=== PATIENT | male | born 1935 | race Caucasian/White ===

== ENCOUNTER 2017-02-19 13:16 | Day surgery (SDC) | payer MEDICARE, BC ==
[2017-02-19] MEDS ORDERED: TRIAMCINOLONE ACETONIDE 40 MG/ML SUS ONE (14:17)
[2017-02-19] MEDS ORDERED: BUPIVACAINE HCL 0.25% MPF 10 ML SOL INFIL ONE (14:17)
[2017-02-19 14:55] VITALS: RESP 20; TEMP 97.9
[2017-02-19 15:04] VITALS: BP 209/84; PULSE 70; O2SAT 98
== END 2017-02-19 15:15 | disposition home or self-care (01) | DRG 552 ==
LOC: SURG 13:16
PROVIDERS: ATTEND Nurse Anesthetist, Certified Registered
DX: M48.062 Spinal stenosis, lumbar region with neurogenic claudication (principal); M53.86 Other specified dorsopathies, lumbar region
CPT/HCPCS: J3300

== ENCOUNTER 2017-03-02 14:40 | Inpatient (IN) | payer MEDICARE, BC ==
[2017-03-02] MEDS ORDERED: LABETALOL HYDROCHLORIDE 5 MG/ML SOL IV ONE ×2 (14:48→14:57)
[2017-03-02] MEDS: SODIUM CHLORIDE 0.9% FLUSH 10 ML SOL IV PRN ×2 (15:04→17:26)
[2017-03-02 15:08] LABS: BASOPHILS % (AUTO) 0 % (0-3); EOSINOPHILS % (AUTO) 0 % (0-9); HEMATOCRIT 44 % (39-53); MEAN CORPUSCULAR HGB CONC 34.1 gm/dl (32.0-36.0); MEAN CORPUSCULAR VOLUME 96 fL (80-100); MONOCYTES % (AUTO) 9.4 % (0-12); NEUTROPHILS % (AUTO) 77.9 % (37-80)
[2017-03-02 15:23] LABS: ALBUMIN 3.6 gm/dl (3.4-5.0); ALT 42 IU/L (14-63); CALCIUM 8.9 mg/dl (8.5-10.1); GLOM FILT RATE 57 mL/min (>60); POTASSIUM 4.1 mMol/L (3.5-5.1); SODIUM 138 mMol/L (136-145)
[2017-03-02 15:32] LABS: APPEARANCE,URINE Clear; BILIRUBIN,URINE NEGATIVE (NEGATIVE); COLOR,URINE Yellow; GLUCOSE, URINE (UA) NEGATIVE (NEGATIVE); KETONES,URINE NEGATIVE (NEGATIVE); LEUKOCYTE ESTERASE ,URINE NEGATIVE (NEGATIVE); NITRATE,URINE NEGATIVE (NEGATIVE); OCCULT BLOOD,URINE NEGATIVE (NEG-TRACE)
[2017-03-02] MEDS ORDERED: ACETAMINOPHEN 325 MG PO ONE (15:39)
[2017-03-02] MEDS ORDERED: ACETAMINOPHEN 325 MG ONE (15:40)
[2017-03-02] MEDS ORDERED: NITROGLYCERIN 0.4 MG TAB SL PRN (16:30)
[2017-03-02] MEDS ORDERED: ACETAMINOPHEN 325 MG PO PRN (16:30)
[2017-03-02] MEDS: SODIUM CHLORIDE 0.9% 1000ML 1,000 ML IV SCH (17:26)
[2017-03-02] MEDS: ENOXAPARIN 40 MG SOL SC SCH (17:51)
[2017-03-02] MEDS ORDERED: ASCORBIC ACID/COPPER/LUTEIN/ 1 CAP SGL PO SCH (18:00)
[2017-03-02] MEDS: ASPIRIN EC 81 MG PO SCH (20:50)
[2017-03-02] MEDS: DONEPEZIL 5 MG 5 MG TAB PO SCH (20:50)
[2017-03-02] MEDS: TAMSULOSIN HYDROCHLORIDE 0.4 MG CAP PO SCH (20:50)
[2017-03-02] MEDS: MEMANTINE HYDROCHLORIDE 10 MG TAB PO SCH (20:51)
[2017-03-03] MEDS: SODIUM CHLORIDE 0.9% 1000ML 1,000 ML IV SCH (03:26)
[2017-03-03] MEDS: LEVOTHYROXINE SODIUM 50 MCG TAB PO SCH (06:33)
[2017-03-03] MEDS: PANTOPRAZOLE SODIUM 40 MG ECT PO SCH (06:33)
[2017-03-03 07:11] LABS: BASOPHILS % (AUTO) 1 % (0-3); EOSINOPHILS % (AUTO) 1 % (0-9); HEMATOCRIT 40 % (39-53); MEAN CORPUSCULAR HGB CONC 35.2 gm/dl (32.0-36.0); MEAN CORPUSCULAR VOLUME 95 fL (80-100); MONOCYTES % (AUTO) 11.5 % (0-12); NEUTROPHILS % (AUTO) 73.5 % (37-80)
[2017-03-03 07:29] LABS: CALCIUM 8.5 mg/dl (8.5-10.1); LDL CHOLESTEROL,CALCULATED 78.4 mg/dl (50-130); POTASSIUM 4.2 mMol/L (3.5-5.1); THYROID STIMULATING HORMONE 2.087 uIU/ml (0.358-3.740)
[2017-03-03] MEDS: MEMANTINE HYDROCHLORIDE 10 MG TAB PO SCH ×2 (08:53→20:51)
[2017-03-03] MEDS: ENOXAPARIN 40 MG SOL SC SCH (08:57)
[2017-03-03] MEDS: AMIODARONE 200 MG TAB PO SCH (08:58)
[2017-03-03] MEDS: HYDROCHLOROTHIAZIDE 25 MG TAB PO SCH (09:03)
[2017-03-03] MEDS ORDERED: CLOPIDOGREL 75 MG TAB ONE (15:37)
[2017-03-03] MEDS: CLOPIDOGREL 75 MG TAB PO SCH (15:39)
[2017-03-03] MEDS: LABETALOL HYDROCHLORIDE 5 MG/ML SOL IV PRN (15:41)
[2017-03-03] MEDS: SODIUM CHLORIDE 0.9% FLUSH 10 ML SOL IV PRN (15:43)
[2017-03-03] MEDS: TAMSULOSIN HYDROCHLORIDE 0.4 MG CAP PO SCH (20:51)
[2017-03-03] MEDS: ASPIRIN EC 81 MG PO SCH (20:51)
[2017-03-03] MEDS: DONEPEZIL 5 MG 5 MG TAB PO SCH (20:51)
[2017-03-04] MEDS: ROSUVASTATIN CALCIUM 10 MG TAB PO SCH ×2 (00:39→21:41)
[2017-03-04] MEDS: PANTOPRAZOLE SODIUM 40 MG ECT PO SCH (07:06)
[2017-03-04] MEDS: LEVOTHYROXINE SODIUM 50 MCG TAB PO SCH (07:06)
[2017-03-04] MEDS: AMIODARONE 200 MG TAB PO SCH (08:55)
[2017-03-04] MEDS: MEMANTINE HYDROCHLORIDE 10 MG TAB PO SCH ×2 (08:56→21:41)
[2017-03-04] MEDS: HYDROCHLOROTHIAZIDE 25 MG TAB PO SCH ×2 (08:56→14:53)
[2017-03-04] MEDS: ENOXAPARIN 40 MG SOL SC SCH (08:59)
[2017-03-04] MEDS: CLOPIDOGREL 75 MG TAB PO SCH (08:59)
[2017-03-04] MEDS ORDERED: CLOPIDOGREL 75 MG TAB PO SCH (15:30)
[2017-03-04] MEDS: DONEPEZIL 5 MG 5 MG TAB PO SCH (21:40)
[2017-03-04] MEDS: TAMSULOSIN HYDROCHLORIDE 0.4 MG CAP PO SCH (21:40)
[2017-03-04] MEDS: ASPIRIN EC 81 MG PO SCH (21:40)
[2017-03-05] MEDS: LABETALOL HYDROCHLORIDE 5 MG/ML SOL IV PRN (01:03)
[2017-03-05] MEDS: PANTOPRAZOLE SODIUM 40 MG ECT PO SCH (06:30)
[2017-03-05] MEDS: LEVOTHYROXINE SODIUM 50 MCG TAB PO SCH (06:30)
[2017-03-05 07:27] LABS: CALCIUM 9.1 mg/dl (8.5-10.1)
[2017-03-05 07:29] LABS: BASOPHILS % (AUTO) 0 % (0-3); EOSINOPHILS % (AUTO) 1 % (0-9); HEMATOCRIT 42 % (39-53); MEAN CORPUSCULAR HGB CONC 34.6 gm/dl (32.0-36.0); MEAN CORPUSCULAR VOLUME 95 fL (80-100); MONOCYTES % (AUTO) 11.1 % (0-12)
[2017-03-05 07:46] VITALS: BP 143/70; PULSE 53; RESP 20; TEMP 97.3; O2SAT 96
[2017-03-05] MEDS: MEMANTINE HYDROCHLORIDE 10 MG TAB PO SCH (08:41)
[2017-03-05] MEDS: AMIODARONE 200 MG TAB PO SCH (08:42)
[2017-03-05] MEDS: HYDROCHLOROTHIAZIDE 25 MG TAB PO SCH (08:45)
[2017-03-05] MEDS: CLOPIDOGREL 75 MG TAB PO SCH (08:45)
[2017-03-05] MEDS: ENOXAPARIN 40 MG SOL SC SCH (08:46)
[2017-03-05] MEDS ORDERED: LABETALOL HYDROCHLORIDE 100 MG TAB PO SCH (09:00)
[2017-03-05] MEDS ORDERED: PATIENT EDUCATION 1 MISC PRN (10:42)
[2017-03-05] MEDS ORDERED: PNEUMOC 13-VAL CONJ-DIP CRM/PF 0.5 ML SYRINGE IM ONE (11:58)
== END 2017-03-05 15:55 | DRG 66 ==
LOC: ED 14:40 → ACUTE CARE 16:19 → UNDOADMIN 16:19 → ACUTE CARE 16:30
PROVIDERS: ADMIT Emergency Medicine; ATTEND Emergency Medicine
PROC: F01ZCZZ Transfer Assessment (ICD-10-PCS; principal; 2017-03-03)
PROC: F01L5ZZ Range of Motion and Joint Integrity Assessment of Musculoskeletal System - Lower Back / Lower Extremity (ICD-10-PCS; 2017-03-03)
PROC: F01L0ZZ Muscle Performance Assessment of Musculoskeletal System - Lower Back / Lower Extremity (ICD-10-PCS; 2017-03-03)
PROC: F02Z1ZZ Dressing Assessment (ICD-10-PCS; 2017-03-03)
PROC: F02Z0ZZ Bathing/Showering Assessment (ICD-10-PCS; 2017-03-03)
PROC: F02Z3ZZ Grooming/Personal Hygiene Assessment (ICD-10-PCS; 2017-03-03)
DX: I63.9 Cerebral infarction, unspecified (principal); I66.02 Occlusion and stenosis of left middle cerebral artery; R47.01 Aphasia; R29.702 NIHSS score 2; M54.5 Low back pain; W19.XXXA Unspecified fall, initial encounter; I10 Essential (primary) hypertension; M40.209 Unspecified kyphosis, site unspecified
CPT/HCPCS: 36415; 70450; 70544; 70551; 71010; 80048; 80053; 80061; 81001; 82962; 84443; 84484; 85025; 90670; 93005; 93012; 93306; 94762; 96374; 99221; 99285; J1650; G0008

== ENCOUNTER 2017-12-13 09:40 | Emergency (ER) | payer MEDICARE, BC ==
[2017-12-13 10:07] LABS: BASOPHILS % (AUTO) 1 % (0-3); EOSINOPHILS % (AUTO) 2 % (0-9); HEMATOCRIT 40 % (39-53); HEMOGLOBIN 13.5 gm/dl (13.5-17.7); LYMPHOCYTES % (AUTO) 19.6 % (10-50); MEAN CORPUSCULAR HEMOGLOBIN 31.7 pg (27.0-32.0); MEAN CORPUSCULAR HGB CONC 33.9 gm/dl (32.0-36.0); MEAN CORPUSCULAR VOLUME 94 fL (80-100); MONOCYTES % (AUTO) 11.6 % (0-12); NEUTROPHILS % (AUTO) 66.3 % (37-80)
[2017-12-13 10:10] VITALS: TEMP 98
[2017-12-13 10:24] LABS: INR 1.1 (0.86-1.12)
[2017-12-13 10:28] LABS: ALBUMIN 3.5 gm/dl (3.4-5.0); ALKALINE PHOSPHATASE 80 IU/L (46-116); ALT 23 IU/L (14-63); AST 14 IU/L (15-37); BILIRUBIN,TOTAL 0.4 mg/dl (0.2-1.0); BLOOD UREA NITROGEN 21 mg/dl (7-18); CALCIUM 8.8 mg/dl (8.5-10.1); CARBON DIOXIDE 25.8 mEq/L (21-32); CHLORIDE 103 mMol/L (98-107); CREATININE 1.04 mg/dl (0.80-1.30); GLUCOSE 101 mg/dl (74-106); POTASSIUM 4.3 mMol/L (3.5-5.1); SODIUM 136 mMol/L (136-145); TOTAL PROTEIN 6.6 gm/dl (6.4-8.2); TROP I < 0.017 ng/ml (0.000-0.056)
[2017-12-13 11:06] VITALS: BP 132/67; PULSE 52; RESP 23; O2SAT 97
== END 2017-12-13 11:38 | DRG 69 ==
LOC: ED 09:40
DX: G45.9 Transient cerebral ischemic attack, unspecified (principal); J20.9 Acute bronchitis, unspecified
CPT/HCPCS: 36415; 70450; 71045; 80053; 84484; 85025; 85610; 85730; 93005; 99283; 99284

== ENCOUNTER 2017-12-25 13:01 | Emergency (ER) | payer MEDICARE, BC ==
[2017-12-25 13:08] VITALS: RESP 18; TEMP 97.9; O2SAT 98
[2017-12-25 13:38] LABS: BASOPHILS % (AUTO) 1 % (0-3); EOSINOPHILS % (AUTO) 2 % (0-9); HEMATOCRIT 41 % (39-53); HEMOGLOBIN 13.5 gm/dl (13.5-17.7); LYMPHOCYTES % (AUTO) 22.9 % (10-50); MEAN CORPUSCULAR HEMOGLOBIN 31.1 pg (27.0-32.0); MEAN CORPUSCULAR HGB CONC 32.7 gm/dl (32.0-36.0); MEAN CORPUSCULAR VOLUME 95 fL (80-100); MONOCYTES % (AUTO) 11.1 % (0-12); NEUTROPHILS % (AUTO) 63.3 % (37-80)
[2017-12-25 13:48] LABS: ALBUMIN 3.5 gm/dl (3.4-5.0); BILIRUBIN,TOTAL 0.4 mg/dl (0.2-1.0); CALCIUM 8.7 mg/dl (8.5-10.1); CARBON DIOXIDE 26.5 mEq/L (21-32); CREATININE 1.09 mg/dl (0.80-1.30); POTASSIUM 4.5 mMol/L (3.5-5.1); TOTAL PROTEIN 6.7 gm/dl (6.4-8.2)
[2017-12-25 17:26] VITALS: BP 198/79; PULSE 60
== END 2017-12-25 17:08 | DRG 206 ==
LOC: ED 13:01
DX: T17.908A Unspecified foreign body in respiratory tract, part unspecified causing other injury, initial encounter (principal)
CPT/HCPCS: 36415; 70491; 71260; 80053; 85025; 99283; Q9967

== ENCOUNTER 2018-04-05 15:07 | Emergency (ER) | payer MEDICARE, BC ==
[2018-04-05 15:15] VITALS: TEMP 97.6
[2018-04-05] MEDS ORDERED: LIDOCAINE HCL 1% 50 MG/5 ML SOL INFIL ONE (15:47)
[2018-04-05] MEDS ORDERED: LIDOCAINE HCL 1% MPF 30 SOL ONE (16:09)
[2018-04-05] MEDS ORDERED: CEPHALEXIN 250 MG/5 ML BOTTLE PO ONE (16:59)
[2018-04-05 17:56] VITALS: RESP 20
[2018-04-05 17:57] VITALS: BP 190/85; PULSE 60; O2SAT 99
== END 2018-04-05 17:45 | DRG 605 ==
LOC: ED 15:07
DX: S61.215A Laceration without foreign body of left ring finger without damage to nail, initial encounter (principal); S61.217A Laceration without foreign body of left little finger without damage to nail, initial encounter; S63.257A Unspecified dislocation of left little finger, initial encounter
CPT/HCPCS: 12002; 26770; 73130; 99284; A9270-GY; J2001

== ENCOUNTER 2018-04-08 00:06 | Emergency (ER) | payer MEDICARE, BC | END 2018-04-08 01:45 | LOC: ED 00:06 ==

== ENCOUNTER 2018-06-13 10:51 | Inpatient (IN) | payer MEDICARE, BC ==
[2018-06-13] MEDS ORDERED: FUROSEMIDE 20mg SOL IV ONE (11:07)
[2018-06-13] MEDS ORDERED: FUROSEMIDE 20mg SOL ONE (11:14)
[2018-06-13] MEDS: SODIUM CHLORIDE 0.9% FLUSH 10 ML SOL IV PRN ×2 (11:32→23:10)
[2018-06-13 11:56] LABS: BASOPHILS % (AUTO) 0 % (0-3); EOSINOPHILS % (AUTO) 0 % (0-9); HEMATOCRIT 42 % (39-53); HEMOGLOBIN 14.2 gm/dl (13.5-17.7); LYMPHOCYTES % (AUTO) 8.5 % (10-50); MEAN CORPUSCULAR HEMOGLOBIN 31.8 pg (27.0-32.0); MEAN CORPUSCULAR HGB CONC 33.7 gm/dl (32.0-36.0); MEAN CORPUSCULAR VOLUME 94 fL (80-100)
[2018-06-13 12:15] LABS: ALBUMIN 3.7 gm/dl (3.4-5.0); ALKALINE PHOSPHATASE 129 IU/L (46-116); ALT 16 IU/L (14-63); AST 22 IU/L (15-37); BILIRUBIN,TOTAL 0.6 mg/dl (0.2-1.0); BLOOD UREA NITROGEN 19 mg/dl (7-18); CALCIUM 8.7 mg/dl (8.5-10.1); CARBON DIOXIDE 27.2 mEq/L (21-32); CHLORIDE 104 mMol/L (98-107); CREATININE 1.14 mg/dl (0.80-1.30); CRP INFLAMMATORY 0.41 mg/dl (0.00-0.33); GLUCOSE 113 mg/dl (74-106); POTASSIUM 4.8 mMol/L (3.5-5.1); SODIUM 140 mMol/L (136-145); TOTAL PROTEIN 6.9 gm/dl (6.4-8.2); TROP I < 0.017 ng/ml (0.000-0.056)
[2018-06-13] MEDS ORDERED: CEFTRIAXONE 1 GM PDS ONE (12:46)
[2018-06-13] MEDS ORDERED: SODIUM CHLORIDE 0.9% 250 ML 250 ML IV ONE (12:47)
[2018-06-13] MEDS ORDERED: CEFTRIAXONE 1 GM PDS 0.5 GM in SODIUM CHLORIDE 0.9% 50 ML 50 ML IV ONE (12:47)
[2018-06-13] MEDS ORDERED: SODIUM CHLORIDE 0.9% 1000ML 1,000 ML IV ONE (12:51)
[2018-06-13] MEDS ORDERED: AZITHROMYCIN 500 MG PDS IV ONE (13:31)
[2018-06-13] MEDS: AZITHROMYCIN 500 MG PDS IV SCH (13:42)
[2018-06-13] MEDS ORDERED: ALBUTEROL NEB SOL 2.5MG/3ML 1 VIAL SOL NEB PRN (15:39)
[2018-06-14 07:41] LABS: BASOPHILS % (AUTO) 1 % (0-3); EOSINOPHILS % (AUTO) 1 % (0-9); HEMATOCRIT 42 % (39-53); HEMOGLOBIN 13.9 gm/dl (13.5-17.7); LYMPHOCYTES % (AUTO) 19.3 % (10-50); MEAN CORPUSCULAR HEMOGLOBIN 31.6 pg (27.0-32.0); MEAN CORPUSCULAR HGB CONC 33.2 gm/dl (32.0-36.0); MEAN CORPUSCULAR VOLUME 95 fL (80-100); MONOCYTES % (AUTO) 12.6 % (0-12); NEUTROPHILS % (AUTO) 66.3 % (37-80)
[2018-06-14 07:52] LABS: CALCIUM 8.9 mg/dl (8.5-10.1); CARBON DIOXIDE 25.8 mEq/L (21-32); CREATININE 1.18 mg/dl (0.80-1.30); POTASSIUM 4.2 mMol/L (3.5-5.1)
[2018-06-14] MEDS: FUROSEMIDE 20mg SOL IV SCH (09:51)
[2018-06-14] MEDS: SODIUM CHLORIDE 0.9% FLUSH 10 ML SOL IV PRN ×2 (09:51→14:05)
[2018-06-14 10:52] LABS: APPEARANCE,URINE Cloudy; BILIRUBIN,URINE NEGATIVE (NEGATIVE); COLOR,URINE Red; GLUCOSE, URINE (UA) NEGATIVE (NEGATIVE); KETONES,URINE TRACE (NEGATIVE); LEUKOCYTE ESTERASE ,URINE TRACE (NEGATIVE); NITRATE,URINE NEGATIVE (NEGATIVE); PH,URINE 6.5
[2018-06-14 10:59] LABS: OCCULT BLOOD,URINE 3+ (NEG-TRACE); RBC,URINE TNTC (0-3AV/HPF); WBC,URINE UNABLE (0-5AV/HPF)
[2018-06-14 11:00] LABS: BACTERIA UNABLE (< 1+); CRYSTALS UNABLE (0-3 AVE/HPF); EPITHELIAL CELLS UNABLE (SQUAMOUS)
[2018-06-14 11:44] LABS: APPEARANCE,URINE Cloudy; BILIRUBIN,URINE NEGATIVE (NEGATIVE); COLOR,URINE Pink; GLUCOSE, URINE (UA) NEGATIVE (NEGATIVE); KETONES,URINE TRACE (NEGATIVE); LEUKOCYTE ESTERASE ,URINE TRACE (NEGATIVE); NITRATE,URINE NEGATIVE (NEGATIVE); OCCULT BLOOD,URINE 3+ (NEG-TRACE)
[2018-06-14 12:11] LABS: BACTERIA 1+ (< 1+); CRYSTALS NEGATIVE (0-3 AVE/HPF); EPITHELIAL CELLS 0-2 (SQUAMOUS); RBC,URINE TNTC (0-3AV/HPF)
[2018-06-14] MEDS ORDERED: CEFTRIAXONE 1 GM PDS 0.5 GM in SODIUM CHLORIDE 0.9% 50 ML 50 ML IV ONE (13:00)
[2018-06-14] MEDS ORDERED: AZITHROMYCIN 500 MG PDS IV ONE (13:21)
[2018-06-14] MEDS ORDERED: CEFTRIAXONE 1 GM PDS ONE (13:21)
[2018-06-14] MEDS ORDERED: SODIUM CHLORIDE 0.9% 250 ML 250 ML IV ONE (13:22)
[2018-06-14] MEDS ORDERED: SODIUM CHLORIDE 0.9% 50 ML 50 ML IV ONE (13:22)
[2018-06-14] MEDS ORDERED: LORAZEPAM 2 MG/ML SOL ONE (13:22)
[2018-06-14] MEDS: AZITHROMYCIN 500 MG PDS IV SCH (13:53)
[2018-06-14] MEDS: AZITHROMYCIN 500 MG PDS 500 MG in SODIUM CHLORIDE 0.9% 250 ML 250 ML IV SCH (13:55)
[2018-06-14] MEDS: SODIUM CHLORIDE 0.9% 1000ML 1,000 ML IV SCH (14:05)
[2018-06-14] MEDS: LORAZEPAM 2 MG/ML 10ML MDV 2 MG/ML VIAL IV PRN (14:05)
[2018-06-14] MEDS ORDERED: FLUMAZENIL 1 MG/10 ML SOL IV ONE (15:58)
[2018-06-15] MEDS: MORPHINE SULFATE 10 MG/ML SOL IV PRN ×3 (08:42→21:03)
[2018-06-15] MEDS: SODIUM CHLORIDE 0.9% FLUSH 10 ML SOL IV PRN ×2 (08:44→09:16)
[2018-06-15] MEDS ORDERED: LORAZEPAM 2 MG/ML SOL ONE (09:12)
[2018-06-15] MEDS: LORAZEPAM 2 MG/ML 10ML MDV 2 MG/ML VIAL IV PRN (09:15)
[2018-06-15] MEDS ORDERED: SCOPOLAMINE 1.5MG PATCH TD SCH (11:00)
[2018-06-15] MEDS: SODIUM CHLORIDE 0.9% 1000ML 1,000 ML IV SCH (11:53)
[2018-06-15] MEDS ORDERED: AZITHROMYCIN 500 MG PDS IV ONE (13:01)
[2018-06-15] MEDS ORDERED: SODIUM CHLORIDE 0.9% 250 ML 250 ML IV ONE (13:01)
[2018-06-15] MEDS: AZITHROMYCIN 500 MG PDS 500 MG in SODIUM CHLORIDE 0.9% 250 ML 250 ML IV SCH (13:06)
[2018-06-15] MEDS: FUROSEMIDE 20mg SOL IV SCH (13:42)
[2018-06-15] MEDS: LORAZEPAM 2 MG/ML SOL IV PRN (23:02)
[2018-06-16] MEDS: MORPHINE SULFATE 10 MG/ML SOL IV PRN ×4 (05:22→14:00)
[2018-06-16] MEDS: LORAZEPAM 2 MG/ML SOL IV PRN ×3 (05:35→12:04)
[2018-06-16] MEDS: SODIUM CHLORIDE 0.9% FLUSH 10 ML SOL IV PRN ×2 (06:47→07:45)
[2018-06-16] MEDS: ALBUTEROL/IPRATROPIUM 1 VIAL SOL INH SCH ×3 (06:48→18:32)
[2018-06-16 07:17] LABS: BASOPHILS % (AUTO) 1 % (0-3); EOSINOPHILS % (AUTO) 0 % (0-9); HEMATOCRIT 43 % (39-53); HEMOGLOBIN 14.2 gm/dl (13.5-17.7); MEAN CORPUSCULAR HEMOGLOBIN 31.2 pg (27.0-32.0); MEAN CORPUSCULAR HGB CONC 32.8 gm/dl (32.0-36.0); MEAN CORPUSCULAR VOLUME 95 fL (80-100); MONOCYTES % (AUTO) 7.1 % (0-12); NEUTROPHILS % (AUTO) 78.2 % (37-80)
[2018-06-16 07:28] LABS: CALCIUM 9.1 mg/dl (8.5-10.1); CARBON DIOXIDE 23.6 mEq/L (21-32); CREATININE 0.97 mg/dl (0.80-1.30); POTASSIUM 4.1 mMol/L (3.5-5.1)
[2018-06-16] MEDS: ACETAMINOPHEN 650 MG SUP PR PRN (13:55)
[2018-06-16] MEDS: LORAZEPAM PO PRN ×2 (17:45→21:05)
[2018-06-16] MEDS: SODIUM CHLORIDE 0.9% 1000ML 1,000 ML IV SCH (19:37)
[2018-06-16] MEDS: MORPHINE SULFATE 20 MG/1 ML SOL PO PRN (22:41)
[2018-06-17] MEDS: MORPHINE SULFATE 20 MG/1 ML SOL PO PRN ×4 (00:46→06:17)
[2018-06-17] MEDS: ALBUTEROL/IPRATROPIUM 1 VIAL SOL INH SCH ×2 (00:49→06:06)
[2018-06-17] MEDS: SODIUM CHLORIDE 0.9% FLUSH 10 ML SOL IV PRN ×3 (00:58→09:16)
[2018-06-17] MEDS: LORAZEPAM PO PRN ×3 (01:20→07:40)
[2018-06-17] MEDS: ACETAMINOPHEN 650 MG SUP PR PRN ×2 (01:45→07:57)
[2018-06-17 06:17] VITALS: RESP 32
[2018-06-17 07:39] VITALS: BP 111/59; TEMP 103.2
[2018-06-17 08:58] VITALS: PULSE 107; O2SAT 84
[2018-06-17] MEDS: MORPHINE SULFATE 10 MG/ML SOL IV PRN ×2 (09:16→11:01)
[2018-06-17] MEDS: LORAZEPAM 2 MG/ML SOL IV PRN (12:16)
== END 2018-06-17 13:11 | disposition expired | DRG 948 ==
LOC: ED 10:51 → ACUTE CARE 14:29 → UNDOADMIN 14:29 → ACUTE CARE 14:45
PROVIDERS: ADMIT Family Medicine; ATTEND Family Medicine
DX: R41.82 Altered mental status, unspecified (principal); R29.704 NIHSS score 4; R41.0 Disorientation, unspecified; R53.83 Other fatigue; G30.1 Alzheimer's disease with late onset; F02.80 Dementia in other diseases classified elsewhere, unspecified severity, without behavioral disturbance, psychotic disturbance, mood disturbance, and anxiety; J44.9 Chronic obstructive pulmonary disease, unspecified; R06.02 Shortness of breath; Z79.899 Other long term (current) drug therapy
CPT/HCPCS: 36415; 70450; 71250; 80048; 80053; 81001; 83880; 84484; 85025; 85651; 87088; 93005; 94640; 96365; 96366; 96374; 96375; 99070; 99222; 99232; 99284; J0456; J0696; J1940; J2060; J2270; J7613; A9270-GY; J3490